=== PATIENT | female | born 1965 | race Caucasian/White ===

== ENCOUNTER → 2018-10-09 | Outpatient (CLI) | payer OTHER ==
[2018-10-11 15:07] LABS: HPV 16 Negative (Negative); HPV 18 Negative (Negative); HPV OTHER HR TYPES Negative (Negative)
== END | disposition home or self-care (01) ==
LOC: LAB SHORT 17:26 → LAB 17:26
PROVIDERS: Nurse Practitioner Women's Health
DX: Z12.72 Encounter for screening for malignant neoplasm of vagina (principal); Z91.89 Other specified personal risk factors, not elsewhere classified
CPT/HCPCS: 87624; G0123

== ENCOUNTER 2019-05-03 13:57 | Emergency (ER) | payer OTHER ==
[~2019-05-03] VITALS: Ht 162.6 cm; Wt 82.5 kg
[2019-05-03] MEDS ORDERED: SYNTHROID100 MCG PO (17:54)
[2019-05-03] MEDS ORDERED: GABA300 PO (17:54)
[2019-05-03] MEDS ORDERED: ESTRADIOL1 MG PO (17:54)
[2019-05-03] MEDS ORDERED: OMEPRAZOLE MAGN20 M1 PO (17:54)
[2019-05-03] MEDS ORDERED: DULO60 PO (17:54)
[2019-05-03] MEDS ORDERED: CELECOXIB100 MG PO (17:54)
== END 2019-05-03 17:56 | disposition home or self-care (01) ==
LOC: ER 13:57
DX: S76.311A Strain of muscle, fascia and tendon of the posterior muscle group at thigh level, right thigh, initial encounter (principal); Z88.5 Allergy status to narcotic agent; Z91.040 Latex allergy status; Z79.899 Other long term (current) drug therapy; X58.XXXA Exposure to other specified factors, initial encounter
CPT/HCPCS: 93971; 99284-25

== ENCOUNTER 2019-05-30 11:38 | Emergency (ER) | payer OTHER ==
[~2019-05-30] VITALS: Ht 160 cm; Wt 82.5 kg
[~2019-05-30 11:38] MED LIST: CELECOXIB100 MG PO; DULO60 PO; ESTRADIOL1 MG PO; GABA300 PO; OMEPRAZOLE MAGN20 M1 PO; SYNTHROID100 MCG PO
[2019-06-20] MEDS ORDERED: CYCL10 PO (10:31)
[2019-06-20] MEDS ORDERED: METO25ER PO (10:41)
== END 2019-05-30 12:43 | disposition home or self-care (01) ==
LOC: ER 11:38
DX: S82.302A Unspecified fracture of lower end of left tibia, initial encounter for closed fracture (principal); Z88.5 Allergy status to narcotic agent; Z91.040 Latex allergy status; Z79.899 Other long term (current) drug therapy
CPT/HCPCS: 29515; 99283-25

== ENCOUNTER 2019-06-21 10:41 | Day surgery (SDC) | payer OTHER ==
[~2019-06-21] VITALS: Ht 160 cm; Wt 81.1 kg
[~2019-06-21 10:41] MED LIST changes: +CYCL10 PO; +METO25ER PO
--- NOTE | 2019-06-21 12:27 | NUR ---
PT INTO SDS VIA W/C. History, Chart, Medications and Allergies reviewed before start of procedure.Patient confirms NPO status and agrees with scheduled surgery. PT UPSET AT FIRST, BUT CALMS AFTER SOME DISCUSSION. DENIES ACTUAL ALLERGY TO HYDROCODONE, REPORTS MAKES HER NAUSEATED. STATES SHE DISCUSSED THIS WITH DR. GONZALEZ PREOPERATIVLY AND IS PLANNING ON TAKING HYPROCODONE POST OPERATIVLY FOR PAIN CONTROL JUST NEEDED.
--- NOTE | 2019-06-21 15:46 | NUR ---
PT IS VERY VERBAL ABOUT HER FALL AND HER MOVE AND MONEY PROBLEMS MOLD PROBLEMS ETC I HAVE ENC HER TO TRY TO REST
--- NOTE | 2019-06-21 16:29 | NUR ---
2530 PT DECLINES TAKING PO MED AT THIS TIME SHE WANTS TO WAIT TO MAKE SURE SHE IS NOT GOING TO HAVE AN UPSET STOMACH. SHE IS EATING [employer] AND DRINKING SPRITE.
--- NOTE | 2019-06-21 16:39 | NUR ---
1640 NORCO GIVEN PO SHE IS TAKING PO WITHOUT PROBLEM CONTINUES TO TALK TO NISH WISE ABOUT DIFFERENT LIFE SITUATIONS ICE PACK TO OPERTIVE SITE WIGGLES TOE CAP REFILL WNL
--- NOTE | 2019-06-21 17:42 | NUR ---
PT DRESSED SELF. STAND BY ASSIST TO TRANSFER TO W/C FOR DISCHARGE. SHE WAS MEDICATED PER ORDERS FOR PAIN . VERBALIZED D/C INSTRUCTIONS . FRIEND AT BEDSIDE TO TAKE PT HOME GLASSES AND PURSE WITH PATIENT
== END 2019-06-21 22:40 | disposition home or self-care (01) ==
LOC: ORSCMMR 10:41
PROVIDERS: Orthopaedic Surgery
PROC: 0QSG04Z Reposition Right Tibia with Internal Fixation Device, Open Approach (ICD-10-PCS; principal; 2019-06-21 12:30)
PROC: 0QSJ04Z Reposition Right Fibula with Internal Fixation Device, Open Approach (ICD-10-PCS; principal; 2019-06-21 12:30)
DX: S82.851A Displaced trimalleolar fracture of right lower leg, initial encounter for closed fracture (principal); I10 Essential (primary) hypertension; K21.9 Gastro-esophageal reflux disease without esophagitis; E03.9 Hypothyroidism, unspecified; F32.9 Major depressive disorder, single episode, unspecified; Z79.899 Other long term (current) drug therapy
CPT/HCPCS: A9270-GY; C1713; C1769; J0690; J1100; J1885; J2250; J2405; J2704; J3010; J7120

== ENCOUNTER 2021-11-23 12:54 | Emergency (ER) | payer BC ==
[~2021-11-23] VITALS: Ht 160 cm; Wt 83.5 kg
[2021-11-23] MEDS ORDERED: Prednisone20 MG PO (15:12)
== END 2021-11-23 15:24 | disposition home or self-care (01) ==
LOC: ER 12:54
DX: M54.31 Sciatica, right side (principal); Z88.5 Allergy status to narcotic agent; Z88.6 Allergy status to analgesic agent; Z91.040 Latex allergy status; Z79.899 Other long term (current) drug therapy
CPT/HCPCS: J1885

== ENCOUNTER 2021-12-03 21:05 | Emergency (ER) | payer BC ==
[~2021-12-03] VITALS: Ht 160 cm; Wt 83.5 kg
[~2021-12-03 21:05] MED LIST changes: +Prednisone20 MG PO
[2021-12-03 21:23] LABS: BASOPHILS ABSOLUTE AUTO 0.03 K/mm3 (0.00-0.23); BASOPHILS PERCENT AUTO 0 % (0-2); EOSINOPHILS ABSOLUTE AUTO 0.18 K/mm3 (0.00-0.68); EOSINOPHILS PERCENT AUTO 1 % (0-6); Hematocrit 41.1 % (33.0-51.0); Hemoglobin 13.4 g/dL (11.5-16.0); IMMATURE GRAN ABSOLUTE AUTO 0.06 K/mm3 (0.00-0.10); IMMATURE GRAN PERCENT AUTO 0 % (0-1); LYMPHOCYTES ABSOLUTE AUTO 1.57 K/mm3 (0.84-5.20); LYMPHOCYTES PERCENT AUTO 11 % (21-46); MONOCYTES ABSOLUTE AUTO 1.09 K/mm3 (0.16-1.47); MONOCYTES PERCENT AUTO 8 % (4-13); Mean Corpuscular HGB 28.2 pg (26.0-34.0); Mean Corpuscular HGB Conc 32.6 g/dL (31.5-36.5); Mean Corpuscular Volume 87 fL (80-100); NEUTROPHILS ABSOLUTE AUTO 10.92 K/mm3 (1.96-9.15); NEUTROPHILS PERCENT AUTO 79 % (41-73); Platelet Count 350 K/mm3 (150-400); RDW Coefficient Variation 14.6 % (11.7-14.2); RDW Standard Deviation 46.6 fL (35.1-46.3); Red Blood Cell Count 4.75 M/mm3 (3.80-5.20); White Blood Cell Count 13.85 K/mm3 (4.00-11.30)
[2021-12-03 21:42] LABS: Albumin, Blood 3.4 g/dL (3.4-5.0); Albumin/Globulin Ratio 0.9 (0.8-1.8); Bilirubin, Total 0.3 mg/dL (0.1-1.0); Bun/Creatinine Ratio 22.7 (12.0-20.0); Creatinine, Blood 0.84 mg/dL (0.40-1.00); Globulin, Blood 3.6 g/dL (2.2-4.0); Potassium, Blood 3.7 mmol/L (3.5-5.5)
[2021-12-03] MEDS ORDERED: DICY20 PO (23:52)
[2021-12-03] MEDS ORDERED: AMOCLA875 PO (23:52)
== END 2021-12-04 01:15 | disposition home or self-care (01) ==
LOC: ER 21:05
PROVIDERS: Emergency Medicine
DX: K52.9 Noninfective gastroenteritis and colitis, unspecified (principal); Z88.5 Allergy status to narcotic agent; Z88.8 Allergy status to other drugs, medicaments and biological substances; Z91.040 Latex allergy status; Z79.899 Other long term (current) drug therapy; I10 Essential (primary) hypertension; K21.9 Gastro-esophageal reflux disease without esophagitis
CPT/HCPCS: 36415; 74177; 80053; 85025; 96361; 96374; 96375; 99284-25; A9270; J2405; J3010; J7030; Q9967

== ENCOUNTER → 2025-02-15 | Outpatient (CLI) | payer BC ==
[~2025-02-15] MED LIST changes: +AMOCLA875 PO; +DICY20 PO
== END ==
LOC: LAB 14:34 → LAB SHORT 14:34
DX: R35.0 Frequency of micturition (principal)
CPT/HCPCS: 87086